=== PATIENT | female | born 1990 | race Two or more races ===

== ENCOUNTER 2024-05-12 09:19 | Outpatient (CLI) | payer OTHER | END 2024-05-12 09:34 | disposition home or self-care (01) | LOC: SONOGRAMA 09:19 | PROVIDERS: ATTEND Physical Medicine & Rehabilitation Hospice and Palliative Medicine | DX: M25.532 Pain in left wrist (principal); M25.531 Pain in right wrist; G56.01 Carpal tunnel syndrome, right upper limb; G56.02 Carpal tunnel syndrome, left upper limb ==